=== PATIENT | male | born 1950 ===

== ENCOUNTER 2020-06-19 00:40 | Observation (INO) ==
[2020-06-19] MEDS ORDERED: LABETALOL 20 MG/4 ML SYRINGE IV PRN (04:08)
[2020-06-19] MEDS ORDERED: GLUCAGON 1 MG VIAL IM PRN ×2 (04:15→04:19)
[2020-06-19] MEDS ORDERED: DEXTROSE 50% 25 GM/50 ML VIAL IV PRN ×2 (04:15→04:19)
[2020-06-19] MEDS ORDERED: MECLIZINE 25 MG TABLET PO PRN (07:51)
[2020-06-19 08:25] LABS: Basophils % 0.2 % (0.0-0.8); Eosinophils # 0.2 10*3/uL (0.0-0.87); Eosinophils % 3.4 % (0.00-10.9); Hematocrit 23.5 VOL% (42.0-52.0); Hemoglobin 7.5 GM/DL (14.0-18.0); Immature Granulocytes % 0.7 %; Immature Granulocytes Absolute 0.03 #; Lymphocytes # 1.1 10*3/uL (1.4-4.0); Lymphocytes % 24.9 % (21.2-54.2); Mean Corpuscular HGB Conc 31.9 GM/DL (32-36); Mean Corpuscular Volume 97.5 FL (87-102); Mean Platelet Volume 9.6 FL (9.6-12.0); Monocytes % 7.1 % (1.7-12.7); Neutrophils % 63.7 % (38.7-73.9); Platelet Count 167 T/CUMM (130-400); Red Blood Count 2.41 MC/CUMM (3.8-5.5); Red Cell Distribution Width 15.9 % (9.3-17.3); White Blood Count 4.4 T/CUMM (4-12)
[2020-06-19] MEDS: INSULIN REGULAR 100 UNIT/ML SUBCUT SCH ×3 (08:40→17:25)
[2020-06-19 08:43] LABS: Risk Ratio 4.53; VLDL CHOLESTEROL 65.6 MG/DL
[2020-06-19] MEDS ORDERED: allopurinoL 300 MG TABLET PO SCH (09:00)
[2020-06-19] MEDS ORDERED: MECLIZINE 25 MG TABLET PO SCH ×2 (09:00→21:00)
[2020-06-19] MEDS ORDERED: amLODIPine 2.5 MG TABLET PO SCH (09:00)
[2020-06-19] MEDS ORDERED: hydroCHLOROthiazide 25 MG TABLET PO SCH (09:00)
[2020-06-19] MEDS ORDERED: FUROSEMIDE 80 MG TABLET PO SCH (09:00)
[2020-06-19] MEDS ORDERED: ATORVASTATIN 40 MG TABLET PO SCH (09:00)
[2020-06-19] MEDS ORDERED: ASPIRIN 325 MG TABLET PO SCH (09:00)
[2020-06-19] MEDS ORDERED: ASPIRIN EC 81 MG TABLET PO SCH (09:00)
[2020-06-19] MEDS ORDERED: TAMSULOSIN 0.4 MG CAPSULE PO SCH (09:00)
[2020-06-19] MEDS ORDERED: GLIMEPIRIDE 2 MG TABLET PO SCH (09:00)
[2020-06-19] MEDS ORDERED: carvediloL 3.125 MG TABLET PO SCH (09:00)
[2020-06-19 15:51] VITALS: BP 147/94
[2020-06-19] MEDS ORDERED: ENOXAPARIN 30 MG/0.3 ML SYRINGE SUBCUT SCH (16:00)
[2020-06-19] MEDS ORDERED: GABAPENTIN 100 MG CAPSULE PO SCH (21:00)
[2020-06-20] MEDS ORDERED: methylPREDNISolone 4 MG TABLET PO SCH (08:00)
== END 2020-06-19 19:39 | disposition home or self-care (01) ==
LOC: N.5E → SUATTDRO 02:17
PROVIDERS: ADMIT Internal Medicine; ATTEND Internal Medicine

== ENCOUNTER 2022-04-24 20:11 | Inpatient (IN) ==
[2022-04-24] MEDS ORDERED: GLUCAGON 1 MG VIAL IM PRN (22:23)
[2022-04-24] MEDS ORDERED: ACETAMINOPHEN 325 MG TABLET PO PRN (22:23)
[2022-04-24] MEDS ORDERED: ONDANSETRON 4 MG/2 ML VIAL IV PRN (22:23)
[2022-04-24] MEDS ORDERED: DEXTROSE 10% 250 ML BAG IV PRN (22:41)
[2022-04-24 23:07] LABS: Basophils % 0.4 % (0.0-0.8); Eosinophils # 0.2 10*3/uL (0.0-0.87); Eosinophils % 2.1 % (0.00-10.9); Hematocrit 26.2 VOL% (42.0-52.0); Hemoglobin 8.1 GM/DL (14.0-18.0); Immature Granulocytes % 0.5 %; Immature Granulocytes Absolute 0.04 #; Lymphocytes # 2.1 10*3/uL (1.4-4.0); Lymphocytes % 26.5 % (21.2-54.2); Mean Corpuscular HGB Conc 30.9 GM/DL (32-36); Mean Corpuscular Volume 93.2 FL (87-102); Mean Platelet Volume 9.8 FL (9.6-12.0); Monocytes # 0.8 10*3/uL (0.11-0.8); Neutrophils % 60.5 % (38.7-73.9); Platelet Count 188 T/CUMM (130-400); Red Blood Count 2.81 MC/CUMM (3.8-5.5); Red Cell Distribution Width 16.6 % (9.3-17.3); White Blood Count 7.8 T/CUMM (4-12)
[2022-04-24 23:31] LABS: Alanine Aminotransferase 37 U/L (16-61); Albumin 2.8 G/DL (3.4-5.0); Alkaline Phosphatase 146 U/L (45-117); Aspartate Amino Transferase 28 U/L (0-37); Bilirubin,Total < 0.39 MG/DL (0.20-1.00); Blood Urea Nitrogen 78 MG/DL (7-18); Calcium 8.5 MG/DL (8.5-10.1); Carbon Dioxide 25 MMOL/L (21-32); Chloride 101 MMOL/L (98-107); Cholesterol 92 MG/DL (50-200); Glucose 109 MG/DL (74-106); HDL Cholesterol 38 MG/DL (40-60); Osmolality,Calculated 296.8 MOS/KG (273-304); Potassium 5.5 MMOL/L (3.5-5.1); Risk Ratio 2.42; Sodium 137 MMOL/L (136-145); Total Protein 7.2 G/DL (6.4-8.2); Triglycerides 145 MG/DL (2-150)
[2022-04-25] MEDS ORDERED: HEPARIN 5,000 UNIT/1 ML VIAL SUBCUT SCH (01:00)
[2022-04-25] MEDS ORDERED: INSULIN REGULAR 10 UNIT, CALCIUM GLUCONATE 1,000 MG in DEXTROSE 10% 250 ML IV ONE (01:53)
[2022-04-25 04:45] LABS: Basophils % 0.3 % (0.0-0.8); Eosinophils # 0.2 10*3/uL (0.0-0.87); Eosinophils % 2.7 % (0.00-10.9); Hematocrit 23.8 VOL% (42.0-52.0); Hemoglobin 7.2 GM/DL (14.0-18.0); Immature Granulocytes % 0.6 %; Immature Granulocytes Absolute 0.04 #; Lymphocytes # 1.6 10*3/uL (1.4-4.0); Lymphocytes % 22.8 % (21.2-54.2); Mean Corpuscular HGB Conc 30.3 GM/DL (32-36); Mean Corpuscular Volume 94.1 FL (87-102); Mean Platelet Volume 10.4 FL (9.6-12.0); Monocytes # 0.8 10*3/uL (0.11-0.8); Neutrophils % 62.6 % (38.7-73.9); Platelet Count 173 T/CUMM (130-400); Red Blood Count 2.53 MC/CUMM (3.8-5.5); Red Cell Distribution Width 16.5 % (9.3-17.3); White Blood Count 6.9 T/CUMM (4-12)
[2022-04-25 05:12] LABS: Folate 5.59 NG/ML (5.38-24.0); Vitamin B12 549 PG/ML (211-911)
[2022-04-25 08:08] LABS: Sedimentation Rate-Westergren 90 MM/HR (0-20)
[2022-04-25 08:37] LABS: Hemoglobin A1 (Alkaline) 97.1 % (96.5-98.5); Hemoglobin A2 (Alkaline) 2.9 % (1.5-3.5)
[2022-04-25] MEDS: INSULIN REGULAR 100 UNIT/ML SUBCUT SCH ×4 (09:04→21:43)
[2022-04-25] MEDS: PANTOPRAZOLE 40 MG TABLET PO SCH (10:11)
[2022-04-25] MEDS: PREGABALIN 50 MG CAPSULE PO SCH ×3 (10:11→20:45)
[2022-04-25] MEDS: DOCUSATE SODIUM 100 MG CAPSULE PO SCH ×2 (10:11→20:45)
[2022-04-25] MEDS: HEPARIN 5,000 UNIT/1 ML VIAL SUBCUT SCH ×2 (10:12→20:45)
[2022-04-25 11:35] LABS: RBC,Urine 1 /HPF (0-4); Squamous Epithelial Cell,Urine Occasional /HPF (0-10)
[2022-04-25 11:36] LABS: Bilirubin,Urine Negative (Negative); Blood, Urine Trace mg/dL (Negative); Glucose,Urine (UA) 250 mg/dL (Negative); Ketones,Urine Negative (Negative); Nitrite,Urine Negative (Negative); Protein,Urine >=300 mg/dL (Negative); Urine Appearance Clear (Clear); Urine Color Yellow (Yellow); Urine Specific Gravity 1.025 (1.001-1.035); Urine Urobilinogen 0.2 eU/dL (<2.0); Urine pH 8.5 (4.5-8.0)
[2022-04-25] MEDS: TAMSULOSIN 0.4 MG CAPSULE PO SCH (14:50)
[2022-04-25] MEDS: hydrALAZINE 25 MG TABLET PO SCH ×2 (14:50→20:45)
[2022-04-25] MEDS: SEVELAMER CARBONATE 800 MG TABLET PO SCH ×2 (14:50→20:45)
[2022-04-25] MEDS: INSULIN GLARGINE 100 UNIT/ML SUBCUT SCH (22:03)
[2022-04-26 05:50] LABS: Basophils % 0.2 % (0.0-0.8); Eosinophils # 0.1 10*3/uL (0.0-0.87); Eosinophils % 1.3 % (0.00-10.9); Hematocrit 26.2 VOL% (42.0-52.0); Hemoglobin 8.3 GM/DL (14.0-18.0); Immature Granulocytes % 0.6 %; Immature Granulocytes Absolute 0.05 #; Lymphocytes # 1.3 10*3/uL (1.4-4.0); Lymphocytes % 15.6 % (21.2-54.2); Mean Corpuscular HGB Conc 31.7 GM/DL (32-36); Mean Corpuscular Volume 92.9 FL (87-102); Mean Platelet Volume 10.5 FL (9.6-12.0); Monocytes # 0.7 10*3/uL (0.11-0.8); Monocytes % 8.9 % (1.7-12.7); Neutrophils % 73.4 % (38.7-73.9); Platelet Count 197 T/CUMM (130-400); Red Blood Count 2.82 MC/CUMM (3.8-5.5); Red Cell Distribution Width 16.2 % (9.3-17.3); White Blood Count 8.2 T/CUMM (4-12)
[2022-04-26 06:06] LABS: Calcium 8.4 MG/DL (8.5-10.1); Osmolality,Calculated 289.4 MOS/KG (273-304)
[2022-04-26 06:28] LABS: Potassium 6.3 MMOL/L (3.5-5.1)
[2022-04-26] MEDS ORDERED: hydrALAZINE 20 MG/1 ML VIAL IV ONE (08:42)
[2022-04-26] MEDS: INSULIN REGULAR 100 UNIT/ML SUBCUT SCH ×4 (09:41→20:22)
[2022-04-26] MEDS: HEPARIN 5,000 UNIT/1 ML VIAL SUBCUT SCH (09:42)
[2022-04-26] MEDS: SODIUM ZIRCONIUM CYCLOSILICATE 10 GM PACK PO SCH ×3 (09:44→20:18)
[2022-04-26] MEDS: SEVELAMER CARBONATE 800 MG TABLET PO SCH ×3 (09:44→20:18)
[2022-04-26] MEDS: PANTOPRAZOLE 40 MG TABLET PO SCH (09:45)
[2022-04-26] MEDS: DOCUSATE SODIUM 100 MG CAPSULE PO SCH ×2 (09:45→20:22)
[2022-04-26] MEDS: PREGABALIN 50 MG CAPSULE PO SCH ×3 (09:45→20:18)
[2022-04-26] MEDS: TAMSULOSIN 0.4 MG CAPSULE PO SCH (09:46)
[2022-04-26] MEDS ORDERED: LABETALOL 20 MG/4 ML SYRINGE IV ONE (18:41)
[2022-04-26] MEDS: INSULIN GLARGINE 100 UNIT/ML SUBCUT SCH (20:22)
[2022-04-27] MEDS: HEPARIN 5,000 UNIT/1 ML VIAL SUBCUT SCH ×3 (01:19→21:29)
[2022-04-27 05:18] LABS: Basophils % 0.2 % (0.0-0.8); Eosinophils # 0.1 10*3/uL (0.0-0.87); Eosinophils % 1.7 % (0.00-10.9); Hematocrit 25.3 VOL% (42.0-52.0); Immature Granulocytes % 0.6 %; Immature Granulocytes Absolute 0.04 #; Lymphocytes # 1.5 10*3/uL (1.4-4.0); Lymphocytes % 24.3 % (21.2-54.2); Mean Corpuscular HGB Conc 31.6 GM/DL (32-36); Mean Corpuscular Volume 92.7 FL (87-102); Mean Platelet Volume 10.4 FL (9.6-12.0); Monocytes # 0.7 10*3/uL (0.11-0.8); Monocytes % 10.3 % (1.7-12.7); Neutrophils % 62.9 % (38.7-73.9); Platelet Count 205 T/CUMM (130-400); Red Blood Count 2.73 MC/CUMM (3.8-5.5); Red Cell Distribution Width 16.7 % (9.3-17.3); White Blood Count 6.3 T/CUMM (4-12)
[2022-04-27 05:22] LABS: Calcium 8.4 MG/DL (8.5-10.1); Osmolality,Calculated 288.4 MOS/KG (273-304); Potassium 5.1 MMOL/L (3.5-5.1)
[2022-04-27] MEDS: INSULIN REGULAR 100 UNIT/ML SUBCUT SCH ×4 (08:29→21:29)
[2022-04-27] MEDS: SODIUM ZIRCONIUM CYCLOSILICATE 10 GM PACK PO SCH ×3 (10:01→21:30)
[2022-04-27] MEDS: PANTOPRAZOLE 40 MG TABLET PO SCH (10:02)
[2022-04-27] MEDS: TAMSULOSIN 0.4 MG CAPSULE PO SCH (10:02)
[2022-04-27] MEDS: PREGABALIN 50 MG CAPSULE PO SCH ×3 (10:02→21:30)
[2022-04-27] MEDS: DOCUSATE SODIUM 100 MG CAPSULE PO SCH ×2 (10:02→21:29)
[2022-04-27] MEDS: SEVELAMER CARBONATE 800 MG TABLET PO SCH ×3 (12:08→21:30)
[2022-04-27] MEDS ORDERED: INSULIN GLARGINE 100 UNIT/ML SUBCUT SCH (21:00)
[2022-04-27] MEDS: carvediloL 6.25 MG TABLET PO SCH (21:29)
[2022-04-28 05:37] LABS: Basophils % 0.5 % (0.0-0.8); Eosinophils # 0.1 10*3/uL (0.0-0.87); Hematocrit 25.2 VOL% (42.0-52.0); Hemoglobin 7.9 GM/DL (14.0-18.0); Immature Granulocytes % 0.9 %; Immature Granulocytes Absolute 0.06 #; Lymphocytes # 1.1 10*3/uL (1.4-4.0); Lymphocytes % 17.1 % (21.2-54.2); Mean Corpuscular HGB Conc 31.3 GM/DL (32-36); Mean Corpuscular Volume 92.3 FL (87-102); Mean Platelet Volume 9.9 FL (9.6-12.0); Monocytes # 0.8 10*3/uL (0.11-0.8); Monocytes % 11.5 % (1.7-12.7); Platelet Count 202 T/CUMM (130-400); Red Blood Count 2.73 MC/CUMM (3.8-5.5); Red Cell Distribution Width 16.6 % (9.3-17.3); White Blood Count 6.6 T/CUMM (4-12)
[2022-04-28 05:54] LABS: Calcium 8.4 MG/DL (8.5-10.1); Osmolality,Calculated 289.5 MOS/KG (273-304); Potassium 4.9 MMOL/L (3.5-5.1)
[2022-04-28] MEDS: carvediloL 6.25 MG TABLET PO SCH (09:14)
[2022-04-28] MEDS: SEVELAMER CARBONATE 800 MG TABLET PO SCH ×2 (09:14→15:46)
[2022-04-28] MEDS: DOCUSATE SODIUM 100 MG CAPSULE PO SCH (09:14)
[2022-04-28] MEDS: TAMSULOSIN 0.4 MG CAPSULE PO SCH (09:14)
[2022-04-28] MEDS: HEPARIN 5,000 UNIT/1 ML VIAL SUBCUT SCH (09:15)
[2022-04-28] MEDS: INSULIN REGULAR 100 UNIT/ML SUBCUT SCH ×2 (09:15→12:19)
[2022-04-28] MEDS: PANTOPRAZOLE 40 MG TABLET PO SCH (09:15)
[2022-04-28] MEDS: PREGABALIN 50 MG CAPSULE PO SCH ×2 (09:17→15:46)
[2022-04-28 16:10] VITALS: BP 149/73
== END 2022-04-28 16:24 | disposition home or self-care (01) | DRG 640 ==
LOC: SUATTDRO 21:50 → N.TELEN 21:50
PROVIDERS: ADMIT Internal Medicine; ATTEND Hospitalist